=== PATIENT | male | born 1970 | race African-American/Black ===

== ENCOUNTER 2020-01-31 12:20 | Emergency (ER) | payer OTHER ==
--- NOTE | 2020-01-31 12:40 | ER Document Report ---
ED Medical Screen (RME) - General Chief Complaint: Pain All Over Stated Complaint: LEG/FEET PAIN Time Seen by Provider: 01/31/20 12:37 Mode of Arrival: Wheelchair Information source: Patient Notes: 49-year-old male presented to ED for complaint of pain and spasms to both legs and feet. He states his lower but his legs and feet. He states is been for about a week. He states he went to the urgent care and they gave him some Tylenol threes and Flexeril and sent him home. He states they did not do any blood and his pain is continued so he is come to the ED. Get some blood and urine to ensure that there is no electrolyte abnormalities because of his cramping. I have greeted and performed a rapid initial assessment of this patient. A comprehensive ED assessment and evaluation of the patient, analysis of test results and completion of medical decision making process will be conducted by an additional ED providers. Physical Exam - Vital signs Vitals: Temp Pulse Resp BP Pulse Ox 98.6 F 80 18 173/98 H 98 01/31/20 12:01/31/20 12:01/31/20 12:01/31/20 12:01/31/20 12:29 Course - Vital Signs Vital signs: Temp Pulse Resp BP Pulse Ox 98.6 F 80 18 173/98 H 98 01/31/20 12:01/31/20 12:29 01/31/20 12:29 01/31/20 12:29 01/31/20 12:29
[2020-01-31 13:08] LABS: ABSOLUTE BASOPHILS # (AUTO) 0.1 10^3/uL (0.0-0.2); ABSOLUTE EOSINOPHILS # (AUTO) 0.1 10^3/uL (0.0-0.6); ABSOLUTE LYMPHOCYTES (AUTO) 2.8 10^3/uL (0.5-4.7); ABSOLUTE MONOCYTES (AUTO) 0.4 10^3/uL (0.1-1.4); ABSOLUTE NEUT (AUTO) 3.2 10^3/uL (1.7-8.2); BASOPHILS % (AUTO) 1.1 % (0-2); EOSINOPHILS % (AUTO) 1.9 % (0-6); HEMATOCRIT 43.1 % (37.9-51.0); HEMOGLOBIN 14.8 g/dL (13.5-17.0); LYMPHOCYTES % (AUTO) 42.8 % (13-45); MEAN CORPUSCULAR HEMOGLOBIN 28.8 pg (27.0-33.4); MEAN CORPUSCULAR HGB CONC 34.3 g/dL (32.0-36.0); MEAN CORPUSCULAR VOLUME 84 fl (80-97); MONOCYTES % (AUTO) 6.4 % (3-13); PLATELET COUNT 369 10^3/uL (150-450); RED BLOOD COUNT 5.13 10^6/uL (4.35-5.55); RED CELL DISTRIBUTION WIDTH 14.7 % (11.5-14.0); SEGMENTED NEUTROPHILS % (AUTO) 47.8 % (42-78); TOTAL CELLS COUNTED % (AUTO) 100 %; WHITE BLOOD COUNT 6.6 10^3/uL (4.0-10.5)
[2020-01-31 13:13] LABS: PROTHROMBIN TIME 13.2 SEC (11.4-15.4)
[2020-01-31 13:14] LABS: PARTIAL THROMBOPLASTIN TIME 26.2 SEC (23.5-35.8)
[2020-01-31 13:15] LABS: APPEARANCE,URINE CLEAR; BILIRUBIN,URINE NEGATIVE (NEGATIVE); COLOR,URINE YELLOW; GLUCOSE, URINE NEGATIVE (NEGATIVE); KETONES,URINE NEGATIVE (NEGATIVE); PROTEIN,URINE 100 mg/dL (NEGATIVE); URINE SPECIFIC GRAVITY 1.026
[2020-01-31 13:25] LABS: D-DIMER < 0.27 ug/mL (0.00-0.50)
[2020-01-31 13:28] LABS: ALBUMIN 4.9 g/dL (3.5-5.0); ALKALINE PHOSPHATASE 50 U/L (38-126); ANION GAP 10 (5-19); ASPARTATE AMINO TRANSFERASE 27 U/L (17-59); BILIRUBIN,TOTAL 0.7 mg/dL (0.2-1.3); BLOOD UREA NITROGEN 14 mg/dL (7-20); CALCIUM 10.4 mg/dL (8.4-10.2); CARBON DIOXIDE 28 mmol/L (22-30); CHLORIDE 102 mmol/L (98-107); CREATINE KINASE 307 U/L (55-170); GLUCOSE 164 mg/dL (75-110); POTASSIUM 4.6 mmol/L (3.6-5.0); TOTAL PROTEIN 8.5 g/dL (6.3-8.2)
[2020-01-31] MEDS ORDERED: NORMAL SALINE 1000 ML 1,000 ML IV ONE (13:33)
[2020-01-31] MEDS ORDERED: KETOROLAC TROMETHAMINE INJ/PF 30 MG/1 ML SDV IV ONE (13:43)
--- NOTE | 2020-01-31 15:41 | ER Document Report ---
ED Extremity Problem, Lower - General Chief Complaint: Leg Pain Stated Complaint: LEG/FEET PAIN Time Seen by Provider: 01/31/20 12:37 Primary Care Provider: CASANDRA SARGENT PA-C [Primary Care Provider] - Follow up in 3-5 days Mode of Arrival: Wheelchair Notes: Patient is a 49-year-old male who presents the emergency department with a chief complaint of bilateral leg pain. Patient states that his symptoms started last week and he saw urgent care, who gave him muscle relaxers and Toradol. Patient states that it helped a little bit, but he continues to have tingling in bilateral legs. Patient has history of diabetes, hypertension, and hyperlipidemia. - Related Data Allergies/Adverse Reactions: No Known Allergies Allergy (Unverified 01/31/20 14:39) Past Medical History - General Information source: Patient - Social History Smoking Status: Former Smoker Family History: Reviewed & Not Pertinent Patient has suicidal ideation: No Patient has homicidal ideation: No Endocrine Medical History: Reports: Hx Diabetes Mellitus Type 2 Review of Systems - Review of Systems Notes: REVIEW OF SYSTEMS: CONSTITUTIONAL : Denies recent illness. Denies recent unintentional weight loss. Denies fever, chills, or sweats. EENT: Denies eye, ear, throat, or mouth pain, discharge, or symptoms. Denies nasal or sinus congestion. CARDIOVASCULAR: Denies chest pain. RESPIRATORY: Denies shortness of breath, cough, congestion, difficulty breathing, or wheezing. GASTROINTESTINAL: Denies nausea, vomiting, and diarrhea. Denies abdominal pain. Denies constipation. GENITOURINARY: Denies difficulty urinating, burning, blood in urine, urgency or frequency. MUSCULOSKELETAL: Denies neck and back pain. See HPI. SKIN: Denies rash, itchiness, or lesions HEMATOLOGIC : Denies easy bruising or bleeding. LYMPHATIC: Denies swollen, painful, enlarged glands. NEUROLOGICAL:See HPI. Denies headache. Denies altered mental status. Denies alteration in speech. PSYCHIATRIC: Denies stress, anxiety, alteration in sleep patterns, or depression. All other systems reviewed and negative. Physical Exam - Vital signs Vitals: Temp Pulse Resp BP Pulse Ox 98.6 F 80 18 173/98 H 98 01/31/20 12:29 01/31/20 12:29 01/31/20 12:29 01/31/20 12:29 01/31/20 12:29 - Notes Notes: PHYSICAL EXAMINATION: GENERAL: Appears well, healthy, well-nourished, no acute distress. HEAD: Normocephalic, atraumatic. EYES: PERRL, conjunctiva normal, all extraocular movements intact, sclera nonicteric ENT: Dry mucous membranes. NECK: Supple, no noticeable swelling, redness, rash. Normal range of motion. LUNGS: Equal breath sounds bilaterally and clear to auscultation. No wheezes rales or rhonchi. CARDIOVASCULAR: S1-S2, regular rate, regular rhythm. Radial pulses 2+, normal. ABDOMEN: Normoactive bowel sounds. Soft, nontender, no guarding, no rebound tenderness, and no masses palpated. EXTREMITIES: Normal strength and range of motion, no pitting or edema. No cyanosis. NEUROLOGICAL: Moves all extremities upon command. Strength 5/5 in all e xtremities. PSYCH: Normal mood, normal affect. SKIN: Warm, dry. No rash, lesions, ulcerations noted. Normal skin turgor. Course - Re-evaluation Re-evalutation: 01/31/20 15:41 Hematology is unremarkable. D-dimer ordered in triage and coags are normal. Patient has an elevated glucose of 164, calcium of 10.4, CK of 307, and protein of 8.5. This is consistent with dehydration. He also has protein in his urine. Patient received a liter of fluids here in the emergency department states that he feels much better. Have a very low suspicion for any life-threatening etiology at this time. I have a very low suspicion for a DVT. He will follow- up with his primary care provider. Follow-up precautions were given. Verbal d ischarge instructions were given to the patient. They verbalized understanding. They are stable for discharge. - Vital Signs Vital signs: Temp Pulse Resp BP Pulse Ox 97.9 F 67 16 174/86 H 100 01/31/20 15:48 01/31/20 15:48 01/31/20 15:48 01/31/20 15:48 01/31/20 15:48 - Laboratory Result Diagrams: 01/31/20 12:50 01/31/20 12:50 Laboratory results interpreted by me: 01/31/20 01/31/20 01/31/20 12:50 12:50 12:50 RDW 14.7 H Glucose 164 H Calcium 10.4 H Creatine Kinase 307 H Total Protein 8.5 H Urine Protein 100 H Urine Urobilinogen 2.0 H Urine Ascorbic Acid 40 H Discharge - Discharge Clinical Impression: Bilateral leg pain, Dehydration Condition: Stable Disposition: HOME, SELF-CARE Additional Instructions: You were seen today in the emergency department for leg pain. Your labs show that you are dehydrated. Please make sure you stay well-hydrated. Follow-up with your primary care provider in regards to this visit. Forms: Return to Work Referrals: CASANDRA SARGENT PA-C [Primary Care Provider] - Follow up in 3-5 days
[2020-01-31 15:51] VITALS: BP 174/86
== END 2020-01-31 15:54 | disposition home or self-care (01) ==
LOC: ER 12:20
DX: M79.604 Pain in right leg (principal); M79.605 Pain in left leg; E86.0 Dehydration; R20.0 Anesthesia of skin; E11.9 Type 2 diabetes mellitus without complications; I10 Essential (primary) hypertension; E78.5 Hyperlipidemia, unspecified
CPT/HCPCS: 99284; 96361; 96374; 36415; 82550; 85025; 85610; 85730; 80053; 81001; 85379; J1885; J7030